=== PATIENT | female | born 1935 | race Caucasian/White ===

== ENCOUNTER 2016-12-16 02:55 | Emergency (ER) | payer OTHER ==
[~2016-12-16] VITALS: Ht 157.5 cm; Wt 48.0 kg
[~2016-12-16 02:55] MED LIST: ASCORBIC ACID250 MG PO; ATIVAN0.5 MG PO; CALCIUM 600 +1 EAC3 PO; DITROPAN XL10 MG PO; DONEPEZIL HCL10 MG PO; ENDOCET 10-3251 EACH PO; GABAPENTIN300 MG PO; LEVAQUIN750 MG PO; LEVO-T150 MCG PO; LEVOTHYROXINE100 MCG PO; MYRBETRIQ25 MG PO; NAMENDA10 MG PO; NEURONTIN300 MG PO; POTASSIUM-9999 MG PO; PRILOSEC20 MG PO; PRILOSEC40 MG PO; STOOL SOFTENER100 M1 PO; VITAMIN B-6100 MG PO
[2016-12-16] MEDS ORDERED: TRAMADOL HCL50 MG PO (06:06)
[2016-12-16 06:26] VITALS: BP 150/72
== END 2016-12-16 07:28 | disposition home or self-care (01) ==
LOC: EME 02:55
DX: S52.502A Unspecified fracture of the lower end of left radius, initial encounter for closed fracture (principal); W06.XXXA Fall from bed, initial encounter; Y92.193 Bedroom in other specified residential institution as the place of occurrence of the external cause; F03.90 Unspecified dementia, unspecified severity, without behavioral disturbance, psychotic disturbance, mood disturbance, and anxiety; J45.909 Unspecified asthma, uncomplicated; G89.29 Other chronic pain; R56.9 Unspecified convulsions; E07.9 Disorder of thyroid, unspecified
CPT/HCPCS: 71010; 73110; 93005; 99281; 99284; S0020